=== PATIENT | female | born 1955 | race Caucasian/White ===

== ENCOUNTER 2018-05-09 16:35 | Inpatient (IN) | payer OTHER ==
[2018-05-09 17:42] VITALS: BMI 19.5
--- NOTE | 2018-05-09 20:44 | HP ---
CIWA Score Nausea/Vomitin (vomiting x 5) Muscle Tremors: 4-Moderate,w/Arms Extend Anxiety: 3 Agitation: 0-Normal Activity Paroxysmal Sweats: 2 Orientation: 0-Oriented Tacttile Disturbances: 1-Very Mild Itch/Numbness Auditory Disturbances: 0-None Visual Disturbances: 0-None Headache: 2-Mild CIWA-Ar Total Score: 15 - Admission Criteria OASAS Guidelines: Admission for Medically Managed Detox: Requires at least one of the followin. CIWA greater than 12 2. Seizures within the past 24 hours 3. Delirium tremens within the past 24 hours 4. Hallucinations within the past 24 hours 5. Acute intervention needed for co occurring medical disorder 6. Acute intervention needed for co occurring psychiatric disorder 7. Severe withdrawal that cannot be handled at a lower level of care (continued vomiting, continued diarrhea, abnormal vital signs) requiring intravenous medication and/or fluids 8. Admission ROS [facility] Chief Complaint: Alcohol withdrawal symptoms Allergies/Adverse Reactions: Allergies Allergy/AdvReac Type Severity Reaction Status Date / Time No Known Allergies Allergy Verified 05/09/18 19:30 History of Present Illness: 62 years old female with a long history of alcohol dependence is seeking admission to detox. Patient's last detox was at [facility] and she reports insignificant period of sobriety. She has medical history of hypertension, hyperlipidemia, anxiety, depression and Heart attack 1999. She denies suicide attempt and suicidal ideation at this time. Exam Limitations: No Limitations - Ebola screening Have you traveled outside of the country in the last 21 days: No (N) Have you had contact with anyone from an Ebola affected area: No Have you been sick,other than usual withdrawal symptoms: No Do you have a fever: No - Review of Systems Constitutional: Chills, Malaise, Night Sweats EENT: reports: No Symptoms Reported Respiratory: reports: No Symptoms reported Cardiac: reports: No Symptoms Reported GI: reports: Nausea, Poor Appetite, Poor Fluid Intake, Vomiting (x 5), Abdominal cramping : reports: No Symptoms Reported Musculoskeletal: reports: Back Pain, Muscle Pain Integumentary: reports: Dryness Neuro: reports: Tremors, Unsteady Gait Endocrine: reports: No Symptoms Reported Hematology: reports: No Symptoms Reported Psychiatric: reports: Mood/Affect Appropiate, Orientated x3, Anxious, Depressed Other Systems: Reviewed and Negative Patient History - Patient Medical History Hx Anemia: No Hx Asthma: No Hx Chronic Obstructive Pulmonary Disease (COPD): No Hx Cardiac Disorders: No Hx Congestive Heart Failure: No Hx Hypertension: Yes Hx Hypercholesterolemia: Yes Hx Pacemaker: No HX Cerebrovascular Accident: Yes Hx Seizures: No Hx Dementia: No Hx Diabetes: No Hx Gastrointestinal Disorders: No Hx Liver Disease: No Hx Genitourinary Disorders: No Hx Sexually Transmitted Disorders: No Hx Renal Disease (ESRD): No Hx Thyroid Disease: No Hx Human Immunodeficiency Virus (HIV): No (Never tested) Hx Hepatitis C: No Hx Depression: Yes Hx Suicide Attempt: No (Denies suicidal ideation at this time) Hx Schizophrenia: No Other Medical History: Anxiety - Xanax - Patient Surgical History Past Surgical History: No Hx Neurologic Surgery: No Hx Cataract Extraction: No Hx Cardiac Surgery: No Hx Lung Surgery: No Hx Breast Surgery: No Hx Breast Biopsy: No Hx Abdominal Surgery: No Hx Appendectomy: No Hx Cholecystectomy: No Hx Genitourinary Surgery: No Hx Section: No Hx Orthopedic Surgery: No Anesthesia Reaction: No - PPD History Previous Implant?: Yes Documented Results: Negative w/o proof Implanted On Prior R Admission?: No PPD to be Administered?: Yes - Reproductive History Patient is a Female of Child Bearing Age (11 -55 yrs old): Yes LMP comment: Menopausal Patient : No - Smoking Cessation Smoking history: Current every day smoker Have you smoked in the past 12 months: Yes Aproximately how many cigarettes per day: 20 Hx Chewing Tobacco Use: No Initiated information on smoking cessation: Yes 'Breaking Loose' booklet given: 05/09/18 - Substance & Tx. History Hx Alcohol Use: Yes Hx Substance Use: Yes Substance Use Type: Marijuana Hx Substance Use Treatment: Yes ([facility]) - Substances Abused Alcohol Route: Oral Frequency: Daily Amount used: LIQUOR- 3 PINTS, BEER- 1 SIX PACK Age of first use: 18 Date of Last Use: 05/09/18 Marijuana/Hashish Route: Smoking Frequency: Daily Amount used: 2 JOINTS Age of first use: 28 Date of Last Use: 05/08/18 Family Disease History - Family Disease History Family Disease History: Heart Disease: Father (), Other: Mother ( Epilepsy - ) Admission Physical Exam BHS - Vital Signs Vital Signs: Vital Signs - 24 hr 12/03/18 17:40 Temperature 97.7 F Pulse Rate 106 H Respiratory 18 Rate Blood Pressure 142/100 - Physical General Appearance: Yes: Moderate Distress, Tremorous, Sweating, Anxious HEENTM: Yes: EOMI, Normal ENT Inspection, Normocephalic, Normal Voice, CORTEZ Respiratory: Yes: Normal Breath Sounds, No Respiratory Distress Neck: Yes: Supple Breast: Yes: Breast Exam Deferred Cardiology: Yes: Regular Rhythm, Regular Rate Abdominal: Yes: Normal Bowel Sounds, Soft Genitourinary: Yes: Within Normal Limits Back: Yes: Normal Inspection Musculoskeletal: Yes: Back pain, Muscle Pain Extremities: Yes: Tremors Neurological: Yes: director of marketing analytics II-XII NML intact, Alert, Normal Mood/Affect Integumentary: Yes: Warm Lymphatic: Yes: Within Normal Limits - Diagnostic (1) Alcohol dependence with uncomplicated withdrawal Current Visit: Yes Status: Chronic (2) Hypertension Current Visit: Yes Status: Chronic Qualifiers: Hypertension type: essential hypertension Qualified Code(s): I10 - Essential (primary) hypertension (3) Hypercholesterolemia Current Visit: Yes Status: Chronic (4) Anxiety Current Visit: Yes Status: Acute (5) Depression Current Visit: Yes Status: Chronic Qualifiers: Depression Type: unspecified Qualified Code(s): F32.9 - Major depressive disorder, single episode, unspecified (6) Nicotine dependence Current Visit: Yes Status: Chronic Qualifiers: Nicotine product type: cigarettes Substance use status: uncomplicated Qualified Code(s): F17.210 - Nicotine dependence, cigarettes, uncomplicated Cleared for Admission [facility] - Detox or Rehab [facility] Level of Care: Medically Managed Detox Regimen/Protocol: Librium [facility] Breath Alcohol Content Breath Alcohol Content: 0.111 Urine Pregancy Test - Result Urine Test Results: Negative- NO Line Present Urine Drug Screen - Results Drug Screen Negative: No Urine Drug Screen Results: THC-Marijuana, BZO-Benzodiazepines
[2018-05-09] MEDS ORDERED: ACETAMINOPHEN 325 MG TABLET (FP) PO PRN (20:58)
[2018-05-09] MEDS ORDERED: chlordiazePOXIDE HCL 25 MG CAPSULE PO PRN (20:58)
[2018-05-09] MEDS ORDERED: MAGNESIUM HYDROX 2400MG/30ML ORAL SUSPENSION 30 ML CUP PO PRN (20:58)
[2018-05-09] MEDS ORDERED: LOPERAMIDE HCL 2 MG CAPSULE PO PRN (20:58)
[2018-05-09] MEDS ORDERED: P-EPHED 60MG/TRIPROLIDI 2.5MG TABLET PO PRN (20:58)
[2018-05-09] MEDS ORDERED: MAG HYDROX/AL HYDROX/SIMETH 30 ML UNIT-DOSE CUP PO PRN (20:58)
[2018-05-09] MEDS ORDERED: NICOTINE POLACRILEX 2 MG GUM BUC PRN (20:58)
[2018-05-09] MEDS ORDERED: MENTHOL/PHENOL 1 EACH UD MM PRN (20:58)
[2018-05-09] MEDS ORDERED: IBUPROFEN 400 MG TABLET (FP) PO PRN (20:58)
[2018-05-09] MEDS ORDERED: guaiFENesin/D-METHORPHAN HB 10 ML UNIT-DOSE CUPS PO PRN (20:58)
[2018-05-09] MEDS ORDERED: MAGNESIUM CITRATE 300 ML BOTTLE PO PRN (20:58)
[2018-05-09] MEDS: THIAMINE HCL 100 MG TABLET (FP) PO SCH (22:36)
[2018-05-09] MEDS: METOPROLOL TARTRATE 25 MG TABLET (FP) PO SCH (22:36)
[2018-05-09] MEDS: NAPROXEN 500 MG TABLET (FP) PO SCH (22:36)
[2018-05-09] MEDS: chlordiazePOXIDE HCL 25 MG CAPSULE PO SCH (22:37)
[2018-05-10] MEDS: chlordiazePOXIDE HCL 25 MG CAPSULE PO SCH ×4 (05:42→22:06)
[2018-05-10] MEDS ORDERED: cloNIDine HCL 0.1 MG TABLET PO ONE (06:59)
--- NOTE | 2018-05-10 07:01 | PN ---
S Progress Note Note: Patient's blood pressure is B/P 182/101. Patient is asymptomatic. Vital Signs Temperature 97.1 F L 05/10/18 06:26 Pulse Rate 80 05/10/18 06:26 Respiratory Rate 16 05/10/18 06:26 Blood Pressure 182/101 H 05/10/18 06:26 O2 Sat by Pulse Oximetry (%) Action: Clonidine 0.1mg tablet oral ordered
[2018-05-10 10:05] LABS: ALBUMIN 3.9 g/dl (3.4-5.0); ALK PHOS 84 U/L (45-117); ANION GAP 8 MMOL/L (8-16); BILIRUBIN,TOTAL 0.8 mg/dL (0.2-1); BLOOD UREA NITROGEN 17 mg/dL (7-18); CALCIUM 8.3 mg/dL (8.5-10.1); CHLORIDE 102 mmol/L (98-107); CO2 27 mmol/L (21-32); CREATININE 0.9 mg/dL (0.55-1.3); GLUCOSE,RANDOM 88 mg/dL (74-106); HEMATOCRIT 43.1 % (32.4-45.2); MCH 33.8 pg (25.7-33.7); MCHC 32.4 g/dl (32.0-36.0); MEAN CELL VOLUME 104.3 fl (80-96); MEAN PLT VOLUME 8.8 fl (7.5-11.1); PLATELET COUNT 252 K/MM3 (134-434); POTASSIUM 4.4 mmol/L (3.5-5.1); RBC 4.13 M/mm3 (3.60-5.2); RDW 14.1 % (11.6-15.6); SGOT/AST 18 U/L (15-37); SGPT/ALT 20 U/L (13-61); SODIUM 138 mmol/L (136-145); WHITE BLOOD COUNT 6.4 K/mm3 (4.0-10.0)
[2018-05-10] MEDS ORDERED: ONDANSETRON *ODT* 4 MG TABLET SL PRN (10:09)
[2018-05-10] MEDS: METOPROLOL TARTRATE 25 MG TABLET (FP) PO SCH ×2 (10:28→22:06)
[2018-05-10] MEDS: NICOTINE 14 MG/24 HOURS TOPICAL PATCH TD SCH (10:28)
[2018-05-10] MEDS: ASPIRIN 81 MG CHEWABLE TABLETS PO SCH (10:28)
[2018-05-10] MEDS: NAPROXEN 500 MG TABLET (FP) PO SCH ×2 (10:28→22:06)
[2018-05-10] MEDS: PRENATAL VITAMINS W/ FOLIC ACID TABLET (FP) PO SCH (10:28)
--- NOTE | 2018-05-10 15:56 | PN ---
S CIWA - CIWA Score Nausea/Vomitin Muscle Tremors: 4-Moderate,w/Arms Extend Anxiety: 4-Mod. Anxious/Guarded Agitation: 4-Moderately Restless Paroxysmal Sweats: 3 Orientation: 0-Oriented Tacttile Disturbances: 0-None Auditory Disturbances: 0-None Visual Disturbances: 0-None Headache: 0-None Present CIWA-Ar Total Score: 17 BHS Progress Note (SOAP) Subjective: Tremor, chills, interrupted sleep, sweating, nausea Objective: 05/10/18 15:51 Last Vital Signs Temp Pulse Resp BP Pulse Ox 97.1 F L 93 H 18 139/93 05/10/18 09:30 05/10/18 09:30 05/10/18 09:30 05/10/18 09:30 Laboratory Tests 05/10/18 05/10/18 05/10/18 07:00 07:00 07:00 WBC 6.4 RBC 4.13 Hgb 14.0 Hct 43.1 MCV 104.3 H MCH 33.8 H MCHC 32.4 RDW 14.1 Plt Count 252 MPV 8.8 Sodium 138 Potassium 4.4 Chloride 102 Carbon Dioxide 27 Anion Gap 8 BUN 17 Creatinine 0.9 Creat Clearance w eGFR > 60 Random Glucose 88 Calcium 8.3 L Total Bilirubin 0.8 AST 18 ALT 20 Alkaline Phosphatase 84 Total Protein 7.0 Albumin 3.9 RPR Titer Nonreactive Labs reviewed Assessment: 05/10/18 15:52 Withdrawal symptoms Plan: Continue detox Encouraged PO water intake
[2018-05-10] MEDS: THIAMINE HCL 100 MG TABLET (FP) PO SCH (22:06)
[2018-05-10] MEDS: MELATONIN 5 MG TABLETS PO PRN (22:07)
[2018-05-11] MEDS: chlordiazePOXIDE HCL 25 MG CAPSULE PO SCH ×3 (05:49→17:27)
--- NOTE | 2018-05-11 09:59 | PN ---
S CIWA - CIWA Score Nausea/Vomitin-Mild Nausea/No Vomiting Muscle Tremors: 4-Moderate,w/Arms Extend Anxiety: 2 Agitation: 3 Paroxysmal Sweats: 1-Minimal Palms Moist Orientation: 0-Oriented Tacttile Disturbances: 0-None Auditory Disturbances: 1-Very Mild Visual Disturbances: 0-None Headache: 1-Very Mild CIWA-Ar Total Score: 13 BHS Progress Note (SOAP) Subjective: sweat tremor gi distress low energy Objective: 05/11/18 10:00 Vital Signs Temperature 97.9 F 05/11/18 09:21 Pulse Rate 84 05/11/18 09:21 Respiratory Rate 18 05/11/18 09:21 Blood Pressure 146/96 05/11/18 09:21 O2 Sat by Pulse Oximetry (%) Laboratory Last Values WBC 6.4 K/mm3 (4.0-10.0) 05/10/18 07:00 RBC 4.13 M/mm3 (3.60-5.2) 05/10/18 07:00 Hgb 14.0 GM/dL (10.7-15.3) 05/10/18 07:00 Hct 43.1 % (32.4-45.2) 05/10/18 07:00 MCV 104.3 fl (80-96) H 05/10/18 07:00 MCH 33.8 pg (25.7-33.7) H 05/10/18 07:00 MCHC 32.4 g/dl (32.0-36.0) 05/10/18 07:00 RDW 14.1 % (11.6-15.6) 05/10/18 07:00 Plt Count 252 K/MM3 (134-434) 05/10/18 07:00 MPV 8.8 fl (7.5-11.1) 05/10/18 07:00 Sodium 138 mmol/L (136-145) 05/10/18 07:00 Potassium 4.4 mmol/L (3.5-5.1) 05/10/18 07:00 Chloride 102 mmol/L (98-107) 05/10/18 07:00 Carbon Dioxide 27 mmol/L (21-32) 05/10/18 07:00 Anion Gap 8 MMOL/L (8-16) 05/10/18 07:00 BUN 17 mg/dL (7-18) 05/10/18 07:00 Creatinine 0.9 mg/dL (0.55-1.3) 05/10/18 07:00 Creat Clearance w eGFR > 60 (>60) 05/10/18 07:00 Random Glucose 88 mg/dL (74-106) 05/10/18 07:00 Calcium 8.3 mg/dL (8.5-10.1) L 05/10/18 07:00 Total Bilirubin 0.8 mg/dL (0.2-1) 05/10/18 07:00 AST 18 U/L (15-37) 05/10/18 07:00 ALT 20 U/L (13-61) 05/10/18 07:00 Alkaline Phosphatase 84 U/L (45-117) 05/10/18 07:00 Total Protein 7.0 g/dl (6.4-8.2) 05/10/18 07:00 Albumin 3.9 g/dl (3.4-5.0) 05/10/18 07:00 RPR Titer Nonreactive (NONREACTIVE) 05/10/18 07:00 lab noted Assessment: 05/11/18 10:00 withdrawal sx Plan: continue detox
[2018-05-11] MEDS: METOPROLOL TARTRATE 25 MG TABLET (FP) PO SCH ×2 (10:29→22:21)
[2018-05-11] MEDS: ASPIRIN 81 MG CHEWABLE TABLETS PO SCH (10:29)
[2018-05-11] MEDS: PRENATAL VITAMINS W/ FOLIC ACID TABLET (FP) PO SCH (10:29)
[2018-05-11] MEDS: NICOTINE 14 MG/24 HOURS TOPICAL PATCH TD SCH (10:29)
[2018-05-11] MEDS: NAPROXEN 500 MG TABLET (FP) PO SCH ×2 (10:29→22:21)
--- NOTE | 2018-05-11 15:45 | EKG ---
Test Reason : Blood Pressure : / mmHG Vent. Rate : 074 BPM Atrial Rate : 074 BPM P-R Int : 196 ms QRS Dur : 096 ms QT Int : 416 ms P-R-T Axes : 063 055 083 degrees QTc Int : 461 ms NORMAL SINUS RHYTHM NORMAL ECG NO PREVIOUS ECGS AVAILABLE Confirmed by ABBEY WILLIS MD ([id number]) on 05/11/2018 3:45:00 PM Referred By: Confirmed By:ABBEY WILLIS MD
[2018-05-11] MEDS ORDERED: cloNIDine HCL 0.1 MG TABLET PO ONE (19:45)
[2018-05-11] MEDS: THIAMINE HCL 100 MG TABLET (FP) PO SCH (22:20)
[2018-05-11] MEDS: chlordiazePOXIDE 5 MG CAPSULE PO SCH (22:21)
[2018-05-12] MEDS: chlordiazePOXIDE 5 MG CAPSULE PO SCH ×3 (05:24→17:52)
[2018-05-12] MEDS: PRENATAL VITAMINS W/ FOLIC ACID TABLET (FP) PO SCH (10:52)
[2018-05-12] MEDS: NAPROXEN 500 MG TABLET (FP) PO SCH ×2 (10:53→22:32)
[2018-05-12] MEDS: NICOTINE 14 MG/24 HOURS TOPICAL PATCH TD SCH (10:53)
[2018-05-12] MEDS: METOPROLOL TARTRATE 25 MG TABLET (FP) PO SCH ×2 (10:53→22:32)
[2018-05-12] MEDS: ASPIRIN 81 MG CHEWABLE TABLETS PO SCH (10:53)
--- NOTE | 2018-05-12 15:33 | PN ---
BHS Progress Note (SOAP) Subjective: feeling better no tremor less sweat sleep better at night social with peers on [address] Objective: 05/12/18 15:32 Vital Signs Temperature 98.2 F 05/12/18 13:42 Pulse Rate 66 05/12/18 13:42 Respiratory Rate 16 05/12/18 13:42 Blood Pressure 110/62 05/12/18 13:42 O2 Sat by Pulse Oximetry (%) Laboratory Last Values WBC 6.4 K/mm3 (4.0-10.0) 05/10/18 07:00 RBC 4.13 M/mm3 (3.60-5.2) 05/10/18 07:00 Hgb 14.0 GM/dL (10.7-15.3) 05/10/18 07:00 Hct 43.1 % (32.4-45.2) 05/10/18 07:00 MCV 104.3 fl (80-96) H 05/10/18 07:00 MCH 33.8 pg (25.7-33.7) H 05/10/18 07:00 MCHC 32.4 g/dl (32.0-36.0) 05/10/18 07:00 RDW 14.1 % (11.6-15.6) 05/10/18 07:00 Plt Count 252 K/MM3 (134-434) 05/10/18 07:00 MPV 8.8 fl (7.5-11.1) 05/10/18 07:00 Sodium 138 mmol/L (136-145) 05/10/18 07:00 Potassium 4.4 mmol/L (3.5-5.1) 05/10/18 07:00 Chloride 102 mmol/L (98-107) 05/10/18 07:00 Carbon Dioxide 27 mmol/L (21-32) 05/10/18 07:00 Anion Gap 8 MMOL/L (8-16) 05/10/18 07:00 BUN 17 mg/dL (7-18) 05/10/18 07:00 Creatinine 0.9 mg/dL (0.55-1.3) 05/10/18 07:00 Creat Clearance w eGFR > 60 (>60) 05/10/18 07:00 Random Glucose 88 mg/dL (74-106) 05/10/18 07:00 Calcium 8.3 mg/dL (8.5-10.1) L 05/10/18 07:00 Total Bilirubin 0.8 mg/dL (0.2-1) 05/10/18 07:00 AST 18 U/L (15-37) 05/10/18 07:00 ALT 20 U/L (13-61) 05/10/18 07:00 Alkaline Phosphatase 84 U/L (45-117) 05/10/18 07:00 Total Protein 7.0 g/dl (6.4-8.2) 05/10/18 07:00 Albumin 3.9 g/dl (3.4-5.0) 05/10/18 07:00 RPR Titer Nonreactive (NONREACTIVE) 05/10/18 07:00 lab noted Assessment: 05/12/18 15:32 mild withdrawal sx Plan: medically supervised detox
[2018-05-12] MEDS ORDERED: cloNIDine HCL 0.1 MG TABLET PO ONE (20:19)
[2018-05-12] MEDS: THIAMINE HCL 100 MG TABLET (FP) PO SCH (22:32)
[2018-05-12] MEDS: chlordiazePOXIDE HCL 10 MG CAPSULE PO SCH (22:32)
[2018-05-12] MEDS: MELATONIN 5 MG TABLETS PO PRN (22:33)
[2018-05-13] MEDS: chlordiazePOXIDE HCL 10 MG CAPSULE PO SCH (05:35)
[2018-05-13 06:30] VITALS: BP 102/69; PULSE 66; TEMP 96.6
--- NOTE | 2018-05-13 12:18 | DS ---
[facility] Detox Discharge Summary Admission Date: 05/09/18 Discharge Date: 05/13/18 - History Present History: Alcohol Dependence - Physical Exam Results Vital Signs: Vital Signs Temperature 96.6 F L 05/13/18 06:30 Pulse Rate 66 05/13/18 06:30 Respiratory Rate 16 05/13/18 06:30 Blood Pressure 102/69 05/13/18 06:30 O2 Sat by Pulse Oximetry (%) Pertinent Admission Physical Exam Findings: PATIENT COMPLETED DETOX WITHOUT ADVERSE EVENT. PATIENT D/C MEDICALLY STABLE. DENIES SI/HI. PATIENT TO FOLLOW UP WITH OUTPATIENT AT [facility] FOR REHAB TREATMENT. ENCOURAGED TO ATTEND GROUP MEETINGS TO PREVENT RELAPSE AND TO FOLLOW UP WITH PCP WITHIN ONE WEEK OF D/C. - Treatment Hospital Course: Detox Protocol Followed, Detoxed Safely, Responded well, Discharged Condition Good, Rehab Referral Accepted Patient has Accepted a Rehab Referral to: [facility] - Medication Discharge Medications: Ambulatory Orders Aspirin [ASA -] 81 mg PO DAILY 05/09/18 Naproxen [Naprosyn -] 500 mg PO BID 05/09/18 Metoprolol Tartrate [Lopressor -] 25 mg PO BID #30 tablet 05/12/18 - AMA Did Patient Leave Against Medical Advice: No
== END 2018-05-13 09:16 | disposition home or self-care (01) | DRG 775 ==
LOC: YASAS 16:35 → Y3N 21:12
PROC: HZ2ZZZZ Detoxification Services for Substance Abuse Treatment (ICD-10-PCS; principal; 2018-05-09)
DX: F10.230 Alcohol dependence with withdrawal, uncomplicated (principal); F12.20 Cannabis dependence, uncomplicated; F17.210 Nicotine dependence, cigarettes, uncomplicated; F32.9 Major depressive disorder, single episode, unspecified; F41.9 Anxiety disorder, unspecified; I10 Essential (primary) hypertension; I25.2 Old myocardial infarction; E78.00 Pure hypercholesterolemia, unspecified
CPT/HCPCS: 36415; 80053; 85027; 86593; 93005; 93010; J0735; Q0162